=== PATIENT | female | born 1965 | race Two or more races ===

== ENCOUNTER 2016-08-06 14:09 | Observation (INO) | payer OTHER ==
--- NOTE | 2016-08-06 15:05 | EDPHY ---
H & P Stated Complaint: Central Chest and upper back pain-1330 Time Seen by Provider: 08/06/16 15:04 - Personal History LMP (Females 10-55): Now Current Tetanus/Diphtheria Vaccine: Unsure Current Tetanus Diphtheria and Acellular Pertussis (TDAP): Unsure - Medical/Surgical History Hx Asthma: No Hx Chronic Respiratory Disease: No Hx Diabetes: No Hx Cardiac Disease: No Hx Renal Disease: No Hx Cirrhosis: No Hx Alcoholism: No Hx HIV/AIDS: No Hx Splenectomy or Spleen Trauma: No Other PMH: pmh- depression, gastric ulcers, following control inspector ( doesnt know name or for reason) - Social History Smoking Status: Never smoked Constitutional: Initial Vital Signs Temperature (C) 36.7 C 08/06/16 14:28 Heart Rate 81 08/06/16 14:28 Respiratory Rate 16 08/06/16 14:28 Blood Pressure 111/80 08/06/16 14:28 O2 Sat (%) 97 08/06/16 14:28 O2 Delivery Mode Room Air Allergies/Adverse Reactions: prochlorperazine edisylate [From Compazine] Allergy (Intermediate, Verified 12/16 14:34) Vomiting prochlorperazine maleate [From Compazine] Allergy (Intermediate, Verified 14:34) Vomiting Home Medications: Medication Instructions Recorded Omeprazole 04/29/16 Medical Decision Making ED Course/Re-evaluation: CHIEF COMPLAINT: Chest pain HISTORY OF PRESENT ILLNESS: This patient is a 51 year old female who presents to the Emergency Department complaining of acute chest pain beginning at 1330 today while working. She describes her pain as a pressure localized to the center of her chest with radiation to her left upper back. She reports associated shortness of breath and acute fatigue at the time of the presentation of her pain. She has had symptoms like this in the past but today was more intense than previous episodes. She denies any recent illness. No recent long distance travel. Denies pertinent medical history. REVIEW OF SYSTEMS: A 10 point review of systems was performed and is negative with the exception of the elements mentioned in the history of present illness. PHYSICAL EXAM: HR 81, BP 11/80, O2 Sat 97%, RR 16. Temp noted General Appearance: Alert, well hydrated, appropriate, and non-toxic appearing. Head: Atraumatic without scalp tenderness or obvious injury Eyes: Pupils equal, round, reactive to light and accommodation, EOMI, no trauma , no injection. Ears: Clear bilaterally, no perforation, normal landmarks Nose: Atraumatic, no rhinorrhea, clear. Throat: There is no erythema or exudates, no lesions, normal tonsils, mucus membranes moist. Neck: Supple, 2+ carotid upstroke, nontender, no lymphadenopathy. Respiratory: No retractions, no distress, no wheezes, and no accessory muscle use. Lungs are clear to auscultation bilaterally. Cardiovascular: Diastolic murmur. Regular rate and rhythm, no rubs, or gallops. Bilateral carotid, radial, dorsalis pedis, and posterior tibial pulses intact. Good capillary refill all extremities. Gastrointestinal: Abdomen is soft, nontender, non-distended, no masses, no rebound, no guarding, no peritoneal signs. Musculoskeletal: Normal active ROM of all extremities, atraumatic. Neurological: Alert, appropriate, and interactive. The patient has normal DTRs and non-focal cranial nerves, motor, sensory, and cerebellar exam. Skin: No rashes, good turgor, no nodules on palpation. Past medical history: She believes she may have been diagnosed with fibromyalgia. Gastric ulcers. Past surgical history: Denies. Family history: Non-contributory. Social history: Son at bedside, speaks Indian. DIAGNOSTICS/PROCEDURES/CRITICAL CARE TIME: EKG INTERPRETATION: The 12 lead EKG was interpreted by myself: Sinus rhythm, rate 72. Unchanged from previous obtained 12/25/2013. See hard copy and/or "tracemaster" electronic copy for interpretation. ECHOCARDIOGRAPHY: Indication:chest pain,SOB Procedure: Limited transthoracic 2D echocardiogram. A limited transthoracic echocardiogram was performed by the echocardiogram technologists and interpreted by Dr. Juan Alberto Hawkins. Results: 1. Normal tricuspid valve. Mild tricuspid regurgitation. 2. Right ventricular systolic pressure is normal. 3. Severe aortic regurgitation. 4. No pericardial effusion. 5. EF = 68% 6. Left and right ventricle normal in size and function. Wall motion is normal. IMAGING: Study: X-ray of the chest Indication: Chest pain with radiation to upper back Results: X-ray of the chest was obtained. The results of the study are: normal. The study was read by the radiologist, Dr. Everardo Simpson. I viewed the images myself on the PACS system. Study: CTA of the chest Indication: Aortic insufficiency, chest pain Results: CT angiogram of the chest was obtained. The results of the study are: Technically difficult study. No evidence of PE. No evidence of aortic dissection. The study was read by the radiologist, Dr. Jacky Cabrera. I viewed the images myself on the PACS system. DIFFERENTIAL DIAGNOSIS: The differential diagnosis for the patient's chest pain included but was not limited to myocardial ischemia, pulmonary embolus, chest wall pain, pleural inflammation, and pulmonary infectious causes. MEDICAL DECISION MAKING: This patient is a 51 year old female with no reported prior cardiac history who presents with centralized chest pain with radiation to the upper right back with associated shortness of breath and fatigue beginning while working today. On exam, she has a diastolic murmur. She does not know if she has had a murmur previously. Will proceed with EKG, labs including D-dimer and troponin, chest x- ray, and echocardiogram. Labs obtained. Troponin and D-dimer are both negative. Nt-proBNP within normal limits. 1703: Consultation with Dr. Juan Alberto Hawkins, control inspector. Although she has severe aortic insufficiency because there are no additional abnormalities, she can be safely worked up as an outpatient. Will proceed with angiogram to rule out dissection prior to plan to work-up as an outpatient as discussed with Dr. Hawkins. 1743: Imaging results reported to me by Dr. Jacky Cabrera. Given the technical challenge of this study, will proceed with admission for cardiac observation and rule-out. 1754: Consultation with Dr. Steven Lemons who accepts admission to the [facility]. - Data Points Laboratory Results: Laboratory Results 08/06/16 16:06 08/06/16 16:06 08/06/16 08/06/16 08/06/16 16:06 16:06 16:06 WBC 8.36 10^3/uL 10^3/uL (3.80-9.50) RBC 4.95 10^6/uL 10^6/uL (4.18-5.33) Hgb 13.0 g/dL g/dL (12.6-16.3) Hct 40.6 % % (38.0-47.0) MCV 82.0 fL fL (81.5-99.8) MCH 26.3 pg L pg (27.9-34.1) MCHC 32.0 g/dL L g/dL (32.4-36.7) RDW 14.3 % % (11.5-15.2) Plt Count 344 10^3/uL 10^3/uL (150-400) MPV 9.5 fL fL (8.7-11.7) Neut % (Auto) 75.3 % H % (39.3-74.2) Lymph % (Auto) 18.5 % % (15.0-45.0) Dickens % (Auto) 5.0 % % (4.5-13.0) Eos % (Auto) 0.4 % L % (0.6-7.6) Baso % (Auto) 0.6 % % (0.3-1.7) Nucleat RBC Rel Count 0.0 % % (0.0-0.2) Absolute Neuts (auto) 6.29 10^3/uL 10^3/uL (1.70-6.50) Absolute Lymphs (auto) 1.55 10^3/uL 10^3/uL (1.00-3.00) Absolute Monos (auto) 0.42 10^3/uL 10^3/uL (0.30-0.80) Absolute Eos (auto) 0.03 10^3/uL 10^3/uL (0.03-0.40) Absolute Basos (auto) 0.05 10^3/uL 10^3/uL (0.02-0.10) Absolute Nucleated RBC 0.00 10^3/uL 10^3/uL (0-0.01) Immature Gran % 0.2 % % (0.0-1.1) Immature Gran # 0.02 10^3/uL 10^3/uL (0.00-0.10) D-Dimer 0.34 ug/mLFEU ug/mLFEU (0.00-0.50) Sodium 141 mEq/L mEq/L (134-144) Potassium 4.0 mEq/L mEq/L (3.5-5.2) Chloride 103 mEq/L mEq/L (97-110) Carbon Dioxide 24 mEq/l mEq/l (22-31) Anion Gap 14 mEq/L mEq/L (8-16) BUN 18 mg/dL mg/dL (7-23) Creatinine 0.8 mg/dL mg/dL (0.6-1.0) Estimated GFR > 60 Glucose 110 mg/dL H mg/dL (70-100) Calcium 9.5 mg/dL mg/dL (8.5-10.4) Troponin I < 0.012 ng/mL ng/mL (0-0.034) NT-Pro-B Natriuret Pep 60 pg/mL pg/mL (0-125) Departure - Departure Disposition: [facility] Inpatient Acute Clinical Impression: Chest pain Qualifiers: Chest pain type: unspecified Qualified Code(s): R07.9 - Chest pain, unspecified Aortic insufficiency Qualifiers: Cardiac valve disease etiology: etiology unspecified Qualified Code(s): I35.1 - Nonrheumatic aortic (valve) insufficiency Condition: Fair Print Language: Indian Report Scribed for: Anson Singh Report Scribed by: Kelly Logan Date of Report: 08/06/16 Time of Report: 15:23
--- NOTE | 2016-08-06 15:13 | CPEKG ---
Heart Rate: 72 RR Interval: 833 P-R Interval: 168 QRSD Interval: 84 QT Interval: 392 QTC Interval: 430 P Phoenix: 73 QRS Phoenix: 29 T Wave Phoenix: 43 EKG Severity - BORDERLINE ECG - EKG Impression: SINUS RHYTHM EKG Impression: PROBABLE LEFT ATRIAL ABNORMALITY Electronically Signed By: Anson Singh 06-Aug-2016 23:04:11
[2016-08-06 16:18] LABS: % IMMATURE GRANULYOCYTES 0.2 % (0.0-1.1); ABSOLUTE IMMATURE GRANULOCYTES 0.02 10^3/uL (0.00-0.10); ADD DIFF? NO; ADD MORPH? NO; ADD SCAN? NO; ATYPICAL LYMPHOCYTE FLAG 0 (0-99); FRAGMENT RBC FLAG 0 (0-99); HEMATOCRIT 40.6 % (38.0-47.0); LEFT SHIFT FLG 0 (0-99); LIPEMIA HEMOLYSIS FLAG 80 (0-99); MEAN CELL HEMOGLOBIN 26.3 pg (27.9-34.1); MEAN PLATELET VOLUME 9.5 fL (8.7-11.7); PLATELET CLUMPS FLAG 0 (0-99); PLATELET COUNT 344 10^3/uL (150-400); RED BLOOD CELL COUNT 4.95 10^6/uL (4.18-5.33); RED CELL DISTRIBUTION WIDTH 14.3 % (11.5-15.2)
[2016-08-06 16:30] VITALS: O2SAT 96
[2016-08-06 16:31] LABS: ANION GAP 14 mEq/L (8-16); CALCIUM 9.5 mg/dL (8.5-10.4); CARBON DIOXIDE 24 mEq/l (22-31); CHLORIDE 103 mEq/L (97-110); CREATININE 0.8 mg/dL (0.6-1.0); GLOMERULAR FILTRATION RATE > 60; GLUCOSE 110 mg/dL (70-100); SODIUM 141 mEq/L (134-144)
[2016-08-06 16:44] LABS: TROPONIN I < 0.012 ng/mL (0-0.034)
--- NOTE | 2016-08-06 17:07 | ECHO ---
[id number] + + [address] : : [place] [address] : : [phone] + + Adult Echocardiographic Report + + :Name: AZUCENA DENNY Date: 08/06/2016 04:07 PM : : Hospital Admission Number: [id number] : :: 1965 Gender: Female Height : 62 in : :Age: 51 yrs Race: WH,HL,OTH Weight : 119 lb : :Reason For Study: Eval Valves : : BSA: 1 .5 meters2: :History: Chest Pain, SOB, Murmur : + + MMode/2D Measurements \T\ Calculations IVSd: 0.69 cm LVIDd: 4.0 cm FS: 37.0 % Ao root diam: 2.7 cm LVPWd: 0.73 cm LVIDs: 2.5 cm EDV(Teich): 71.3 ml ESV(Teich): 23.2 ml EF(Teich): 67.5 % LVOT diam: 1.9 cm LVOT area: 2.8 cm2 Normal Measurement Values: + + :LVIDd (3.5-5.7cm) IVSd (0.6-1.1cm) LVPWd (0.6-1.1cm) Aortic Root (2.0-3.7cm)Left Atrium (1.5-4.0cm): :LV Vol(d) (76-115ml) LV Vol(s) (29-48ml) Ejec Fraction (50-65%)PV Kashif (0.6- 1.2m/s) TV Kashif (0.4-1.0m/s) : :MV E Kashif (0.8-1.0m/s)MV A Kashif (0.3-1.0m/s)LVOT Kashif (0.7-1.2m/s) Asc Ao Kashif ( 0.9-1.8m/s) : + + Doppler Measurements \T\ Calculations MV E max kashif: MV V2 mean: Ao V2 max: AI max kashif: 98.0 cm/sec 122.2 cm/sec 271.5 cm/sec 333.2 cm/sec MV A max kashif: MV mean PG: Ao max PG: AI max P.5 mmHg 72.0 cm/sec 7.0 mmHg 29.5 mmHg AI dec slope: MV E/A: 1.4 MV V2 VTI: 57.6 cmAo mean P.6 mmHg 214.8 cm/sec2 MVA(VTI): 1.4 cm2 Ao V2 mean: AI P1/2t: 454.3 msec 189.2 cm/sec Ao V2 VTI: 63.3 cm TYRONE(I,D): 1.3 cm2 TYRONE(V,D): 1.2 cm2 LV V1 max: SV(LVOT): 81.4 ml TR max kashif: 117.2 cm/sec 266.0 cm/sec LV V1 max PG: TR max P.5 mmHg 28.3 mmHg LV V1 mean PG: RAP systole: 3.2 mmHg 5.0 mmHg LV V1 mean: RVSP(TR): 85.4 cm/sec 33.3 mmHg LV V1 VTI: 29.2 cm Left Ventricle The left ventricle is normal in size. There is normal left ventricular wall thickness. The left ventricular ejection fraction is normal. Ejection Fraction = 68%. The left ventricular wall motion is normal. Right Ventricle The right ventricle is normal in size and function. Atria The left atrial size is normal. Right atrial size is normal. Mitral Valve The mitral valve is normal in structure and function. There is no evidence of mitral valve prolapse. There is no mitral valve stenosis. There is no mitral regurgitation noted. Tricuspid Valve Normal tricuspid valve. There is mild tricuspid regurgitation. Right ventricular systolic pressure is normal. Aortic Valve Could not clearly note trileaflet structure, consider LESIA to closer evaluate aortic valve. There is no aortic stenosis. Severe aortic regurgitation. AI ERO is .38 cm2. Pulmonic Valve The pulmonic valve is normal in structure and function. There is no pulmonic valvular regurgitation. Great Vessels The aortic root is normal size. Pericardium/Pleural There is no pericardial effusion. Conclusion A complete two-dimensional transthoracic echocardiogram was performed (2D, M-mode, Doppler and color flow Doppler). The left ventricular ejection fraction is normal. Ejection Fraction = 68%. The left ventricular wall motion is normal. The right ventricle is normal in size and function. The mitral valve is normal in structure and function. Normal tricuspid valve There is mild tricuspid regurgitation. Right ventricular systolic pressure is normal. Could not clearly note trileaflet structure, consider LESIA to closer evaluate aortic valve. Severe aortic regurgitation. AI ERO is .38 cm2 There is no pericardial effusion. Final Reading Physician: Ruba Lebron signed on 08/06/2016 05:06 PM Ordering Physician: Anson Singh Performed By: Kelby Alvarado, KATE
[2016-08-06] MEDS ORDERED: IOPAMIDOL (ISOVUE-300) 100 ML BTL IV ONE (17:15)
[2016-08-06] MEDS ORDERED: ACETAMINOPHEN 325 MG TAB PO PRN (18:58)
[2016-08-06] MEDS ORDERED: ONDANSETRON 4 MG/2 ML VIAL IVP PRN (18:58)
[2016-08-06] MEDS ORDERED: ONDANSETRON DISINTEGRATING 4 MG TAB PO PRN (18:58)
--- NOTE | 2016-08-06 20:42 | GHP ---
DATE OF ADMISSION: 08/06/2016 HISTORY OF PRESENT ILLNESS: The patient is a pleasant 51-year-old female with possible history of b icuspid aortic valve, who presents with chest pain. She says it is in the center of her chest, not associated with diaphoresis or shortness of breath. She has no PND, orthopnea, or lower extremity e kelsea. She does describe sort of an [id number] sort of situation. She has no history of rash on her skin or swelling in her joints. No history of blood in her urine. No family history of lupus or other rheumatologic diseases or unexplained need for dialysis. She does not have hypertension, diabetes, or hypercholesterolemia. Does not smoke cigarettes. REVIEW OF SYSTEMS: Complete 10-point review of systems conducted. Negative, except as noted in the HPI. PAST MEDICAL HISTORY: Gastritis. ALLERGIES: Prochlorperazine. MEDICATIONS: Omeprazole. SOCIAL HISTORY: No tobacco. Minimal alcohol. Primarily East [place]orese speaking, though understands some Welsh. FAMILY HISTORY: Negative, as in the HPI. PHYSICAL EXAM: VITAL SIGNS: Temp 36.7, blood pressure 111/80, pulse 81, breathing 16 times a minut e, 93% on room air. GENERAL: No acute distress. HEENT: Sclerae anicteric. Oropharynx clear. Mu cous membranes are moist. NECK: Supple. No lymphadenopathy or JVD. LUNGS: Clear to auscultation bilaterally. HEART: S1, S2. There is a 3/6 systolic ejection murmur heard best at the right uppe r sternal border. There is a subtle diastolic murmur. ABDOMEN: Soft, nontender, nondistended. LO WER EXTREMITIES: No edema. Calves are nontender. SKIN: Without rash. NEUROLOGIC: Nonfocal. DATA REVIEWED: White count 8.3, hematocrit 40, platelets are 344,000. D-dimer is 0.34. Sodium 141 , potassium 4.0, chloride 103, bicarb 24, BUN 18, creatinine 0.8, glucose 110. Troponin less than 0 .012. BNP is 60. CTA of the chest shows no large central pulmonary embolism. There is some motion artifact. No evid ence of aortic dissection from the level just above the aortic root to the aortic arch in the descen ding thoracic aorta. EKG, interpreted by me, shows sinus rhythm at 72 with normal axis and intervals and no ST or T-wave changes. Chest x-ray, interpreted by me, shows no acute cardiopulmonary disease. Echocardiogram shows severe aortic insufficiency; could not tell it was 2 or 3 leaflet. EF of 68% w ith normal LV size and function, and other valves appear normal. I discussed the case Dr. Anson lawson as well as Dr. Kwame Hawkins. ASSESSMENT AND PLAN: A 51-year-old female presents with chest pain, found to have aortic insufficie ncy. 1. Aortic insufficiency. She may have a bicuspid aortic valve, which is a risk factor for this; ho wever, rheumatologic causes can be evaluated. I will send an GUALBERTO. I will also send an RPA, given t he association with syphilis. She denies having history of STDs. 2. Chest pain. Will cycle troponins. Patient's risk factor profile is low risk. 3. Gastritis. Will continue her omeprazole. 4. Pharmacologic prophylaxis. She is low risk. It is indicated if in the hospital longer than 24 hours. 5. Disposition: Observation status. Cardiology will see her in the morning for LESIA. She is n.p.o . past midnight. /[id number]/MODL
[2016-08-07 07:49] VITALS: BP 132/59; PULSE 73; RESP 18; TEMP 98
[2016-08-07] MEDS ORDERED: NS 1,000 ML IV SCH (12:30)
[2016-08-07] MEDS ORDERED: MIDAZOLAM 2 MG/2 ML VIAL IVP ONE (13:00)
[2016-08-07] MEDS ORDERED: MIDAZOLAM 2 MG/2 ML VIAL ONE (13:05)
[2016-08-07] MEDS ORDERED: fentaNYL 100 MCG/2 ML INJ ONE (13:05)
[2016-08-07] MEDS ORDERED: MIDAZOLAM 10 MG/2 ML VIAL IVP ONE (13:30)
[2016-08-07] MEDS ORDERED: fentaNYL 100 MCG/2 ML INJ IVP ONE (13:30)
--- NOTE | 2016-08-07 15:55 | GDS ---
[f rep st] DISCHARGE SUMMARY DISCHARGE DIAGNOSES: 1. Atypical chest pain. 2. Aortic insufficiency with bicuspid aortic valve. 3. Gastritis. CONSULTANTS: Dr. Kwame Hawkins cardiology. HOSPITAL COURSE AND STAY BY PROBLEM: Chest pain with aortic insufficiency: The patient was placed in observation, where she had an echocardiogram done showing a bicuspid aortic valve with severe aor tic regurgitation. A CT angio of the chest was done that was negative for PE or evidence for aortic dissection. In the observation unit, she had 3 negative troponins, and had resolution of her chest pain. A barnes sesophageal echo was done prior to discharge that did reveal bicuspid aortic valve with severe aorti c insufficiency. Prior to discharge, I discussed the case with Dr. Hawkins, who thought it was reasonable for the patie nt to be discharged home with outpatient treadmill stress testing. She will need further monitoring of her aortic valve to ensure she is not having progression of her disease. PHYSICAL EXAM: VITAL SIGNS: On the day of discharge, blood pressure 132/59, pulse 73, respiratory rate 18, O2 saturation 96% on room air. Temperature afebrile. GENERAL: In no acute distress. HEA RT: S1, S2. LUNGS: Clear. ABDOMEN: Soft. EXTREMITIES: No edema. PROCEDURES DONE THIS HOSPITAL STAY: Transesophageal echocardiogram. Refer to report. A CT angio o f the chest on 08/06/2016, refer to report. DISCHARGE MEDICATIONS: Please refer to discharge medication reconciliation in [facility] for details. DISCHARGE INSTRUCTIONS: The patient will be discharged from the hospital, where she will be schedul ed for an outpatient stress test. She will need serial surveillance of her aortic valve, which shou ld be done with a intellectual property counsel on a biannual to annual basis. The patient was seen with a medical trip whiskey filterer present. All questions were answered prior to discharge. /[id number]/MODL
--- NOTE | 2016-08-07 16:18 | ECHO ---
[id number] + + [address] : : [place] [address] : : [phone] + + Transesophageal Echocardiographic Report + + :Name: AZUCENA DENNY Date: 08/07/2016 01:03 PM : : Hospital Admission Number: [id number] Location: [facility]: :: 1965 Gender: Female : :Age: 51 yrs Race: WH,HL,OTH : :Reason For Study: Eval Aortic Valve : :History: Chest Pain, Severe AI : + + Left Ventricle The left ventricle is normal in size and function. The left ventricular ejection fraction is normal. The left ventricular wall motion is normal. Right Ventricle The right ventricle is normal in size and function. Atria Injection of contrast documented no interatrial shunt. The interatrial septum is intact with no evidence for an atrial septal defect. The left atrial size is normal. Right atrial size is normal. Mitral Valve The mitral valve is normal. There is no mitral valve stenosis. There is trace mitral regurgitation. Tricuspid Valve Normal tricuspid valve. There is trace to mild tricuspid regurgitation. Aortic Valve The aortic valve is bicuspid. There is fusion of the right and left aortic coronary cusps. There is no aortic stenosis. Severe aortic regurgitation. Pulmonic Valve The pulmonic valve is normal in structure and function. There is no pulmonic valvular regurgitation. Conclusion A 2D transesophageal echocardiogram with color flow Doppler was performed. The left ventricle is normal in size and function. The left ventricular wall motion is normal. The right ventricle is normal in size and function. The mitral valve is normal. There is trace mitral regurgitation. The aortic valve is bicuspid. There is fusion of the right and left aortic coronary cusps. Severe aortic regurgitation. Normal tricuspid valve. Injection of contrast documented no interatrial shunt. The interatrial septum is intact with no evidence for an atrial septal defect. There is trace to mild tricuspid regurgitation. Final Reading Physician: Ruba Lebron signed on 08/07/2016 04:17 PM Ordering Physician: Bev Powell Performed By: Juan Alberto Hawkins MD
[2016-08-07] MEDS ORDERED: PANTOPRAZOLE SODIUM 40 MG TAB PO SCH (17:00)
== END 2016-08-07 16:50 | disposition home or self-care (01) ==
LOC: F1N 19:47
PROVIDERS: ADMIT Internal Medicine; ATTEND Family Medicine
PROC: B246ZZ4 Ultrasonography of Right and Left Heart, Transesophageal (ICD-10-PCS; principal; 2016-08-06)
DX: R07.89 Other chest pain (principal); I35.1 Nonrheumatic aortic (valve) insufficiency; K29.70 Gastritis, unspecified, without bleeding
CPT/HCPCS: 71020; 71275; 93005; 93306; 93312; 99285; G0378; J2250; J3010; Q9967

== ENCOUNTER → 2016-08-23 | Outpatient (CLI) | payer OTHER | LOC: FIMAGING 08:31 | DX: Z12.31 Encounter for screening mammogram for malignant neoplasm of breast (principal) | CPT/HCPCS: G0202 ==

== ENCOUNTER → 2017-08-25 | Outpatient (CLI) | payer OTHER | LOC: FIMAGING 13:56 | PROVIDERS: ATTEND Family Medicine | DX: Z12.31 Encounter for screening mammogram for malignant neoplasm of breast (principal) ==

== ENCOUNTER → 2018-09-05 | Outpatient (CLI) | payer OTHER | LOC: FIMAGING 14:48 | DX: Z12.31 Encounter for screening mammogram for malignant neoplasm of breast (principal) ==